=== PATIENT | male | born 1940 | race Hispanic/Latino ===

== ENCOUNTER 2018-08-01 11:10 | Day surgery (SDC) | payer MEDICARE, OTHER ==
[2018-08-01] MEDS ORDERED: MYDRIACYL OD ONE (11:55)
[2018-08-01] MEDS ORDERED: IOPIDINE OD ONE (11:55)
[2018-08-01] MEDS ORDERED: NEOFRIN OD ONE (11:55)
[2018-08-01 12:58] VITALS: BP 154/80
== END 2018-08-01 11:11 | disposition home or self-care (01) ==
LOC: OR 11:10
PROVIDERS: ATTEND Ophthalmology
DX: H26.491 Other secondary cataract, right eye (principal); I25.10 Atherosclerotic heart disease of native coronary artery without angina pectoris; E78.00 Pure hypercholesterolemia, unspecified; I10 Essential (primary) hypertension; G47.30 Sleep apnea, unspecified; M19.90 Unspecified osteoarthritis, unspecified site; Z95.1 Presence of aortocoronary bypass graft; Z90.5 Acquired absence of kidney; Z79.899 Other long term (current) drug therapy; Z87.891 Personal history of nicotine dependence; Z98.42 Cataract extraction status, left eye; Z98.41 Cataract extraction status, right eye; Z86.2 Personal history of diseases of the blood and blood-forming organs and certain disorders involving the immune mechanism